=== PATIENT | female | born 1950 | race American Indian/Alaskan Native ===

== ENCOUNTER 2020-05-15 13:21 | Emergency (ER) | payer MEDICARE ==
[2020-05-15 13:34] VITALS: BP 113/55
[2020-05-15] MEDS ORDERED: IBUPROFEN 600 MG TAB PO ONE ×2 (14:31→17:06)
--- NOTE | 2020-05-15 14:31 | Emergency Department Report ---
ED Neck Pain HPI Chief Complaint: Neck Pain/Injury Stated Complaint: LEFT SHOULDER AND NECK Time Seen by Provider: 05/15/20 14:26 Duration: 3 Days Neck Pain Location: Lateral Neck, Trapezius Symptoms: Yes Pain with Movement, No Radiation to Left Upper Ext, No Radiation to Right Upper Ext, No Numbness, No Weakness, No Previous History Other History: 69-year-old -[place] female with a multiple history presents to the emergency room complaining of neck pain for the last 3 days. Patient denies any injury. She states that the pain started in her left trapezius area and now is radiating up to her head behind her left ear. Patient states that the pain is worse when she tries to turn her head to the left as well as when she tries to get up from bed. Patient is taking nothing for pain. Patient states she has been using a warm compress but not helping with the discomfort. ED Review of Systems ROS: Stated complaint: LEFT SHOULDER AND NECK Other details as noted in HPI Comment: All other systems reviewed and negative ED Past Medical Hx - Past Medical History Hx Hypertension: Yes (2001, Denies CP) Hx Heart Attack/AMI: No Hx Diabetes: Yes (NIDDM 2001) Hx Renal Disease: No Hx of Cancer: Yes (BREAST) Hx Arthritis: Yes (RIGHT WRIST) - Surgical History Hx Cholecystectomy: Yes (10) Additional Surgical History: Back Surgery. Lumpectomy Left Breast - Social History Smoking Status: Current Some Day Smoker Substance Use Type: Alcohol - Medications Home Medications: Home Medications Medication Instructions Recorded Confirmed Last Taken Type Folic Acid [Folvite] 1 mg PO DAILY 06/26/13 05/26/14 05/25/14 History Gemfibrozil [Lopid] 600 mg PO BID 06/26/13 05/26/14 05/25/14 History Ranitidine HCl [Zantac] 150 mg PO BID PRN 06/26/13 05/26/14 05/25/14 History Spironolactone [Aldactone] 25 mg PO DAILY 06/26/13 05/26/14 05/25/14 History lisinopriL [Zestril TAB] 40 mg PO DAILY 06/26/13 05/26/14 05/26/14 08:30 History metFORMIN [Glucophage] 500 mg PO BID 06/26/13 05/26/14 05/25/14 History Alendronate Sodium 70 mg PO DAILY 05/14/14 05/26/14 05/25/14 History Anastrozole 1 mg PO DAILY 05/14/14 05/26/14 05/26/14 08:30 History Aspirin EC [Aspirin Enteric Coated 81 mg PO QDAY 05/14/14 05/26/14 05/14/14 History TAB] Calcium Carbonate/Vitamin D3 1 each PO DAILY 05/14/14 05/26/14 05/25/14 History [Calcium 500 + D Tablet] hydroCHLOROthiazide [Hctz] 25 mg PO QDAY 05/14/14 05/26/14 05/25/14 History Neck Pain Exam - Exam General: Vital signs noted. No distress. Alert and acting appropriately. HEENT: No Facial Pain, No Scalp Tenderness, No Contusion, No Abrasion, No Laceration Neck Pain: Yes Left Paraspinal Tenderness, Yes Left Trapezius Tenderness, Yes Pain with Rotation Left, Yes Pain with L Lateral Flexion, No Midline Tenderness, No Right Paraspinal Tenderness, No Right Trapezius Tenderness, No Pain with Rotation Right, No Pain with Extension, No Pain with Flexion, No pain with R Lateral Flexion Chest: Yes Clear Lung Sounds, No Pain with Respirations Heart: Yes Regular, No Murmur Back: No Thoracic Tenderness, No Lumbar Tenderness Neuro: No Numbness, No Weakness, No Normal Reflexes, No Radicular Deficits ED Course Vital Signs 05/15/20 13:33 Temperature 97.9 F Pulse Rate 81 Respiratory 18 Rate Blood Pressure 113/55 [Right] O2 Sat by Pulse 96 Oximetry ED Medical Decision Making - Radiology Data Radiology results: report reviewed Patient: TORI BACK MR#: [id number] : 1950 Acct:[id number] Age/Sex: 69 / F ADM Date: 05/15/20 Loc: ED Attending Dr: Ordering Physician: SHERRIE METCALF Date of Service: 05/15/20 Procedure(s): XR spine cervical 2-3V Accession Number(s): [id number] cc: SHERRIE METCALF Fluoro Time In Minutes: Cervical spine 3 views Indication: Left lateral neck pain Findings: There is no fracture, subluxation, or other acute radiographic abnormality of the cervical spine. There is mild disc space narrowing at C3-4 and C6-7. There is anterior osteophyte formation at C6- 7. The prevertebral soft tissues are unremarkable. There is facet degenerative change most prominent at C3-4, C4-5, and C5-6. Signer Name: Manuel Cordero MD Signed: 05/15/2020 3:01 PM Workstation Name: [id number] Transcribed By: SS Dictated By: Manuel Cordero MD Electronically Authenticated By: Manuel Cordero MD Signed Date/Time: 05/15/20 1501 DD/ 1500 TD/TT: - Medical Decision Making 69-year-old -[place] female with a multiple history presents to the emergency room complaining of neck pain for the last 3 days. Patient denies any injury. She states that the pain started in her left trapezius area and now is radiating up to her head behind her left ear. Patient states that the pain is worse when she tries to turn her head to the left as well as when she tries to get up from bed. Patient is taking nothing for pain. Patient states she has been using a warm compress but not helping with the discomfort. Cervical x-ray is negative for any acute findings. Patient reports her pain is gotten worse that she is not even able to sit down. This provider ordered basic labs and CT cervical. Patient came to tell me that she is not able to stay as and she is in too much pain. Patient was given ibuprofen for pain management. Critical care attestation.: If time is entered above; I have spent that time in minutes in the direct care of this critically ill patient, excluding procedure time. ED Disposition Clinical Impression: Cervical pain (neck) Disposition: Z-07 ELOPED Is pt being admited?: No Does the pt Need Aspirin: No Condition: Stable Referrals: PRIMARY CARE, [Primary Care Provider] - 3-5 Days
--- NOTE | 2020-05-15 15:05 | XRay Report ---
Cervical spine 3 views Indication: Left lateral neck pain Findings: There is no fracture, subluxation, or other acute radiographic abnormality of the cervical spine. There is mild disc space narrowing at C3-4 and C6-7. There is anterior osteophyte formation at C6-7. The prevertebral soft tissues are unremarkable. There is facet degenerative change most prominent at C3-4, C4-5, and C5-6. Signer Name: Manuel Cordero MD Signed: 05/15/2020 3:01 PM Workstation Name: [id number]
== END 2020-05-15 18:47 | disposition left against medical advice (07) ==
LOC: ED 13:21
DX: M54.2 Cervicalgia (principal); M25.512 Pain in left shoulder; I10 Essential (primary) hypertension; E11.9 Type 2 diabetes mellitus without complications; M19.91 Primary osteoarthritis, unspecified site; F17.200 Nicotine dependence, unspecified, uncomplicated; Z90.49 Acquired absence of other specified parts of digestive tract; Z98.890 Other specified postprocedural states; Z79.84 Long term (current) use of oral hypoglycemic drugs; Z79.899 Other long term (current) drug therapy
CPT/HCPCS: 72040